=== PATIENT | male | born 1950 | race Caucasian/White ===

== ENCOUNTER 2024-08-09 08:05 | Day surgery (SDC) | payer OTHER ==
[~2024-08-09] VITALS: Ht 190.5 cm; Wt 111.7 kg
[~2024-08-09 08:05] MED LIST: DIPH50 PO; NS 500 ML IV ONE
--- NOTE | 2024-08-09 08:29 | NUR ---
08/09/24 0829 Luli Sanders TIME OUT COMPLETED AT BEDSIDE AT [address] DUQUE IMMEDIATELY PRIOR TO INJECTION OF 10ML SOLUTION OF 1ML 8.4% SODIUM BICARBONATE 9ML 1% LIDOCAINE WITH EPI 1:[id number]. PT TOLERATED PROCEDURE WELL.
[2024-08-09] MEDS ORDERED: ELIQUIS5 M2 PO (08:31)
[2024-08-09] MEDS ORDERED: ACET325 PO (08:32)
[2024-08-09] MEDS ORDERED: ATOR10 PO (08:32)
[2024-08-09] MEDS ORDERED: Ondansetron HCl 2 MG / ML 2ML Vial ONE (08:38)
[2024-08-09] MEDS ORDERED: FentaNYL Citrate 50 MCG/ML 2 ML Injection ONE (08:38)
[2024-08-09] MEDS ORDERED: Dexamethasone Sod Phos 10 MG/ML 1ML VIAL ONE (08:38)
[2024-08-09] MEDS ORDERED: NS 500 ML IV ONE (08:41)
[2024-08-09 09:18] VITALS: BP 127/90
== END 2024-08-09 09:33 | disposition home or self-care (01) ==
LOC: ORSCSDS 08:05
PROVIDERS: Orthopaedic Surgery
PROC: 0LN70ZZ Release Right Hand Tendon, Open Approach (ICD-10-PCS; principal; 2024-08-09 09:30)
DX: M65.341 Trigger finger, right ring finger (principal); M65.331 Trigger finger, right middle finger; I48.91 Unspecified atrial fibrillation; E78.5 Hyperlipidemia, unspecified; I10 Essential (primary) hypertension; G47.33 Obstructive sleep apnea (adult) (pediatric); K21.9 Gastro-esophageal reflux disease without esophagitis; I49.5 Sick sinus syndrome; Z79.01 Long term (current) use of anticoagulants; Z79.899 Other long term (current) drug therapy; Z87.891 Personal history of nicotine dependence
CPT/HCPCS: J1100; J2405; J3010; J7040